=== PATIENT | male | born 1980 | race Caucasian/White ===

== ENCOUNTER 2018-11-11 22:45 | Inpatient (IN) | payer OTHER ==
[2018-11-11 23:49] LABS: ADD MAN DIFF? NO
[2018-11-11 23:52] LABS: BASOPHIL # 0.1 10^3/ul (0.0-0.1); BASOPHILS % 0.5 % (0.0-2.0); EOSINOPHILS # 0.1 10^3/ul (0.0-0.5); EOSINOPHILS % 0.7 % (0.0-7.0); HEMATOCRIT 29.1 % (42.0-52.0); HEMOGLOBIN 9.8 g/dl (14.0-18.0); LYMPHOCYTES # 1.2 10^3/ul (0.8-2.9); LYMPHOCYTES % 11.9 % (15.0-51.0); MEAN CORPUSCULAR HGB CONC 33.7 g/dl (32.0-37.0); MEAN PLATELET VOLUME 8.3 fl (7.4-10.4); MONOCYTE # 0.7 10^3/ul (0.3-0.9); MONOCYTES % 6.7 % (0.0-11.0); NEUTROPHIL # 8.1 10^3/ul (1.6-7.5); NEUTROPHILS % 78.7 % (39.0-77.0); PLATELET COUNT 504 10^3/UL (140-415); RED BLOOD COUNT 3.27 10^6/ul (4.70-6.10); RED CELL DISTRIBUTION WIDTH 16.5 % (11.5-14.5)
[2018-11-11 23:52] LABS: WHITE BLOOD COUNT 10.3 10^3/ul (4.8-10.8)
[2018-11-12 00:19] LABS: ANION GAP 4 (5-13); BLOOD UREA NITROGEN 13 mg/dl (7-20); CALCIUM 8.1 mg/dl (8.4-10.2); CARBON DIOXIDE 31 mmol/L (21-31); CHLORIDE 94 mmol/L (97-110); CREATININE 0.63 mg/dl (0.61-1.24); Estimated GFR > 60 mL/min (>60); GLUCOSE 105 mg/dl (70-220); POTASSIUM 4.1 mmol/L (3.5-5.1); SODIUM 129 mmol/L (135-144)
[2018-11-12] MEDS: oxyCODONE (CR) 20 MG TAB [oxyCONTIN] PO ×3 (00:19→20:56)
[2018-11-12] MEDS: ENOXAPARIN 80 MG/0.8 ML SYG SC ×3 (00:20→20:46)
[2018-11-12] MEDS ORDERED: VANCOMYCIN IV PER PHARMACY XX (01:30)
[2018-11-12] MEDS: HYDROmorphONE 0.5 MG/0.5 ML SYG IV ×4 (01:36→18:35)
[2018-11-12] MEDS: SOD CHLORIDE 0.9% 250 ML IV (01:37)
[2018-11-12] MEDS ORDERED: VANCOMYCIN 1.5 GM/NS 250 ML 250 ML IVPB (04:00)
[2018-11-12] MEDS: VANCOMYCIN 1.5 GM/NS 250 ML 250 ML IVPB (04:29)
[2018-11-12 08:26] LABS: ADD MAN DIFF? NO
[2018-11-12] MEDS: SERTRALINE 50 MG TAB PO (08:30)
[2018-11-12] MEDS: TRIMETHOPRIM/SULFAMETHOX (DS) TAB PO (08:31)
[2018-11-12] MEDS: GABAPENTIN 100 MG CAP PO ×3 (08:31→20:45)
[2018-11-12] MEDS: EMTRICITABINE/TENOFOVIR TAB PO (08:31)
[2018-11-12] MEDS: AZITHROMYCIN 250 MG TAB PO (08:31)
[2018-11-12 08:33] LABS: BASOPHILS % 0.3 % (0.0-2.0); EOSINOPHILS # 0.1 10^3/ul (0.0-0.5); EOSINOPHILS % 0.4 % (0.0-7.0); HEMATOCRIT 31.1 % (42.0-52.0); HEMOGLOBIN 10.2 g/dl (14.0-18.0); LYMPHOCYTES # 0.8 10^3/ul (0.8-2.9); LYMPHOCYTES % 7.3 % (15.0-51.0); MEAN CORPUSCULAR HEMOGLOBIN 29.1 pg (29.0-33.0); MEAN CORPUSCULAR HGB CONC 32.8 g/dl (32.0-37.0); MEAN CORPUSCULAR VOLUME 88.6 fl (82.0-101.0); MEAN PLATELET VOLUME 8.6 fl (7.4-10.4); MONOCYTE # 0.7 10^3/ul (0.3-0.9); NEUTROPHIL # 9.8 10^3/ul (1.6-7.5); NEUTROPHILS % 84.6 % (39.0-77.0); PLATELET COUNT 527 10^3/UL (140-415); RED BLOOD COUNT 3.51 10^6/ul (4.70-6.10); RED CELL DISTRIBUTION WIDTH 16.6 % (11.5-14.5)
[2018-11-12 08:33] LABS: WHITE BLOOD COUNT 11.5 10^3/ul (4.8-10.8)
[2018-11-12] MEDS: SODIUM CHLORIDE 1 GM TAB PO ×3 (08:34→20:45)
[2018-11-12] MEDS: ACYCLOVIR 400 MG TAB PO (08:34)
[2018-11-12] MEDS: FLUCONAZOLE 200 MG TAB PO (08:34)
[2018-11-12 08:46] LABS: ANION GAP 6 (5-13); BLOOD UREA NITROGEN 10 mg/dl (7-20); CARBON DIOXIDE 28 mmol/L (21-31); CHLORIDE 96 mmol/L (97-110); CREATININE 0.55 mg/dl (0.61-1.24); Estimated GFR > 60 mL/min (>60); GLUCOSE 107 mg/dl (70-220); POTASSIUM 3.9 mmol/L (3.5-5.1); SODIUM 130 mmol/L (135-144)
[2018-11-12] MEDS ORDERED: RIFAMPIN PO (09:00)
[2018-11-12] MEDS ORDERED: oxyCODONE (CR) 20 MG TAB [oxyCONTIN] PO (09:00)
[2018-11-12] MEDS ORDERED: RIFAMPIN 300 MG CAP PO (09:00)
[2018-11-12] MEDS ORDERED: PATIENT'S OWN MEDICATION PO (10:00)
[2018-11-12] MEDS ORDERED: ALBUTEROL 0.083% (NEB) 2.5 MG/3 ML AMP HHN (10:00)
[2018-11-12] MEDS: VANCOMYCIN 1.25 GM/NS 250 ML 250 ML IVPB ×2 (12:08→20:45)
[2018-11-12] MEDS: ALBUTEROL/IPRATROPIUM (NEB) 3 ML AMP HHN ×3 (13:39→20:06)
[2018-11-12] MEDS: BISACODYL (EC) 5 MG TAB PO (14:51)
[2018-11-12] MEDS: DOCUSATE SODIUM 100 MG CAP PO (20:49)
[2018-11-13] MEDS: HYDROmorphONE 0.5 MG/0.5 ML SYG IV ×6 (01:37→23:34)
[2018-11-13] MEDS: VANCOMYCIN 1.25 GM/NS 250 ML 250 ML IVPB ×3 (04:17→20:24)
[2018-11-13 05:41] LABS: WHITE BLOOD COUNT 10.4 10^3/ul (4.8-10.8)
[2018-11-13 05:41] LABS: ADD MAN DIFF? NO; BASOPHIL # 0.1 10^3/ul (0.0-0.1); BASOPHILS % 0.6 % (0.0-2.0); EOSINOPHILS # 0.2 10^3/ul (0.0-0.5); EOSINOPHILS % 1.4 % (0.0-7.0); HEMATOCRIT 29.5 % (42.0-52.0); HEMOGLOBIN 9.8 g/dl (14.0-18.0); LYMPHOCYTES # 1.4 10^3/ul (0.8-2.9); LYMPHOCYTES % 13.3 % (15.0-51.0); MEAN CORPUSCULAR HEMOGLOBIN 29.6 pg (29.0-33.0); MEAN CORPUSCULAR HGB CONC 33.2 g/dl (32.0-37.0); MEAN CORPUSCULAR VOLUME 89.1 fl (82.0-101.0); MEAN PLATELET VOLUME 8.5 fl (7.4-10.4); MONOCYTE # 0.6 10^3/ul (0.3-0.9); MONOCYTES % 5.8 % (0.0-11.0); NEUTROPHIL # 8.1 10^3/ul (1.6-7.5); NEUTROPHILS % 77.3 % (39.0-77.0); PLATELET COUNT 578 10^3/UL (140-415); RED BLOOD COUNT 3.31 10^6/ul (4.70-6.10); RED CELL DISTRIBUTION WIDTH 16.1 % (11.5-14.5)
[2018-11-13 06:01] LABS: ALBUMIN 2.7 g/dl (3.3-4.9); ANION GAP 4 (5-13); BLOOD UREA NITROGEN 8 mg/dl (7-20); CALCIUM 8.2 mg/dl (8.4-10.2); CARBON DIOXIDE 29 mmol/L (21-31); CHLORIDE 97 mmol/L (97-110); CREATININE 0.67 mg/dl (0.61-1.24); GLUCOSE 101 mg/dl (70-220); MAGNESIUM 1.9 mg/dl (1.7-2.5); PHOSPHORUS 3.9 mg/dl (2.5-4.9); SODIUM 130 mmol/L (135-144)
[2018-11-13] MEDS: ALBUTEROL/IPRATROPIUM (NEB) 3 ML AMP HHN (09:00)
[2018-11-13] MEDS: GABAPENTIN 100 MG CAP PO ×3 (09:14→20:25)
[2018-11-13] MEDS: DULOXETINE 30 MG CAP DR PO (09:14)
[2018-11-13] MEDS: AZITHROMYCIN 250 MG TAB PO (09:14)
[2018-11-13] MEDS: oxyCODONE (CR) 20 MG TAB [oxyCONTIN] PO ×2 (09:15→20:25)
[2018-11-13] MEDS: SODIUM CHLORIDE 1 GM TAB PO ×3 (09:15→20:25)
[2018-11-13] MEDS: SERTRALINE 50 MG TAB PO (09:15)
[2018-11-13] MEDS: ENOXAPARIN 80 MG/0.8 ML SYG SC ×2 (09:16→20:35)
[2018-11-13] MEDS: IPRATROPIUM (NEB) 0.5 MG/2.5 ML AMP HHN ×3 (10:00→20:01)
[2018-11-13] MEDS: BIKTARVY PO (10:19)
[2018-11-13] MEDS: BISACODYL (EC) 5 MG TAB PO (10:20)
[2018-11-13 11:40] LABS: VANCOMYCIN,TROUGH 14.5 ug/ml (10.0-20.0)
[2018-11-13] MEDS ORDERED: BIKTARVY PO (18:00)
[2018-11-13] MEDS: MELATONIN 3 MG TABLET PO (20:25)
[2018-11-14] MEDS: IPRATROPIUM (NEB) 0.5 MG/2.5 ML AMP HHN ×4 (01:24→19:35)
[2018-11-14] MEDS: HYDROmorphONE 0.5 MG/0.5 ML SYG IV ×5 (04:06→21:09)
[2018-11-14] MEDS: VANCOMYCIN 1.25 GM/NS 250 ML 250 ML IVPB ×3 (04:06→20:13)
[2018-11-14] MEDS: BIKTARVY PO (08:10)
[2018-11-14] MEDS: DULOXETINE 30 MG CAP DR PO (08:10)
[2018-11-14] MEDS: SODIUM CHLORIDE 1 GM TAB PO ×3 (08:10→20:12)
[2018-11-14] MEDS: GABAPENTIN 100 MG CAP PO ×3 (08:10→20:12)
[2018-11-14] MEDS: SERTRALINE 50 MG TAB PO (08:10)
[2018-11-14] MEDS: ENOXAPARIN 80 MG/0.8 ML SYG SC ×2 (08:10→20:12)
[2018-11-14] MEDS: BISACODYL (EC) 5 MG TAB PO ×2 (09:16→14:56)
[2018-11-14] MEDS: oxyCODONE (CR) 20 MG TAB [oxyCONTIN] PO ×2 (09:16→20:13)
[2018-11-14 09:51] LABS: ADD MAN DIFF? NO
[2018-11-14 09:53] LABS: BASOPHILS % 0.4 % (0.0-2.0); EOSINOPHILS # 0.1 10^3/ul (0.0-0.5); EOSINOPHILS % 1.2 % (0.0-7.0); HEMATOCRIT 30.9 % (42.0-52.0); HEMOGLOBIN 10.1 g/dl (14.0-18.0); LYMPHOCYTES # 1.4 10^3/ul (0.8-2.9); LYMPHOCYTES % 13.3 % (15.0-51.0); MEAN CORPUSCULAR HEMOGLOBIN 29.4 pg (29.0-33.0); MEAN CORPUSCULAR HGB CONC 32.7 g/dl (32.0-37.0); MEAN CORPUSCULAR VOLUME 89.8 fl (82.0-101.0); MEAN PLATELET VOLUME 8.4 fl (7.4-10.4); MONOCYTE # 0.6 10^3/ul (0.3-0.9); MONOCYTES % 5.3 % (0.0-11.0); NEUTROPHIL # 8.4 10^3/ul (1.6-7.5); NEUTROPHILS % 78.6 % (39.0-77.0); PLATELET COUNT 522 10^3/UL (140-415); RED BLOOD COUNT 3.44 10^6/ul (4.70-6.10); RED CELL DISTRIBUTION WIDTH 16.1 % (11.5-14.5)
[2018-11-14 09:53] LABS: WHITE BLOOD COUNT 10.7 10^3/ul (4.8-10.8)
[2018-11-14 10:11] LABS: ALBUMIN 2.9 g/dl (3.3-4.9); ANION GAP 5 (5-13); BLOOD UREA NITROGEN 8 mg/dl (7-20); CALCIUM 8.3 mg/dl (8.4-10.2); CARBON DIOXIDE 28 mmol/L (21-31); CHLORIDE 98 mmol/L (97-110); CREATININE 0.63 mg/dl (0.61-1.24); GLUCOSE 145 mg/dl (70-220); MAGNESIUM 1.9 mg/dl (1.7-2.5); PHOSPHORUS 3.1 mg/dl (2.5-4.9); SODIUM 131 mmol/L (135-144)
[2018-11-14 10:20] LABS: POTASSIUM 3.8 mmol/L (3.5-5.1)
[2018-11-14 13:57] LABS: LYMPHOCYTE - % CD4 (HELPER) 30 % (30-61); LYMPHOCYTE - %CD8 (SUPPRESSOR) 51 % (12-42); LYMPHOCYTE - ABSOLUTE 933 cells/uL (850-3900); LYMPHOCYTE - ABSOLUTE CD4 276 cells/uL (490-1740); LYMPHOCYTE - ABSOLUTE CD8 479 cells/uL (180-1170); LYMPHOCYTE - CD4/CD8 RATIO 0.58 (0.86-5.00)
[2018-11-14] MEDS ORDERED: DOCUSATE SODIUM 100 MG CAP PO (15:00)
[2018-11-14] MEDS: traZODone 50 MG TAB PO (20:13)
[2018-11-15] MEDS: IPRATROPIUM (NEB) 0.5 MG/2.5 ML AMP HHN ×4 (01:02→19:14)
[2018-11-15] MEDS: HYDROmorphONE 0.5 MG/0.5 ML SYG IV ×6 (01:12→22:18)
[2018-11-15] MEDS: DOCUSATE SODIUM 100 MG CAP PO ×3 (01:17→20:34)
[2018-11-15] MEDS: VANCOMYCIN 1.25 GM/NS 250 ML 250 ML IVPB ×3 (05:19→20:36)
[2018-11-15 06:00] LABS: ADD MAN DIFF? NO
[2018-11-15 06:06] LABS: BASOPHIL # 0.1 10^3/ul (0.0-0.1); BASOPHILS % 0.5 % (0.0-2.0); EOSINOPHILS # 0.2 10^3/ul (0.0-0.5); EOSINOPHILS % 2.4 % (0.0-7.0); HEMATOCRIT 24.5 % (42.0-52.0); LYMPHOCYTES # 1.7 10^3/ul (0.8-2.9); LYMPHOCYTES % 18.4 % (15.0-51.0); MEAN CORPUSCULAR HEMOGLOBIN 29.5 pg (29.0-33.0); MEAN CORPUSCULAR HGB CONC 32.7 g/dl (32.0-37.0); MEAN CORPUSCULAR VOLUME 90.4 fl (82.0-101.0); MEAN PLATELET VOLUME 8.5 fl (7.4-10.4); MONOCYTE # 0.6 10^3/ul (0.3-0.9); MONOCYTES % 6.2 % (0.0-11.0); NEUTROPHIL # 6.7 10^3/ul (1.6-7.5); NEUTROPHILS % 71.4 % (39.0-77.0); PLATELET COUNT 607 10^3/UL (140-415); RED BLOOD COUNT 2.71 10^6/ul (4.70-6.10); RED CELL DISTRIBUTION WIDTH 15.9 % (11.5-14.5)
[2018-11-15 06:06] LABS: WHITE BLOOD COUNT 9.4 10^3/ul (4.8-10.8)
[2018-11-15 06:54] LABS: ALBUMIN 2.6 g/dl (3.3-4.9); ANION GAP 5 (5-13); BLOOD UREA NITROGEN 8 mg/dl (7-20); CALCIUM 8.4 mg/dl (8.4-10.2); CARBON DIOXIDE 31 mmol/L (21-31); CHLORIDE 99 mmol/L (97-110); CREATININE 0.56 mg/dl (0.61-1.24); GLUCOSE 103 mg/dl (70-220); MAGNESIUM 1.9 mg/dl (1.7-2.5); PHOSPHORUS 4.1 mg/dl (2.5-4.9); POTASSIUM 4.1 mmol/L (3.5-5.1); SODIUM 135 mmol/L (135-144)
[2018-11-15] MEDS: BIKTARVY PO (08:25)
[2018-11-15] MEDS: DULOXETINE 30 MG CAP DR PO (08:26)
[2018-11-15] MEDS: GABAPENTIN 100 MG CAP PO ×3 (08:26→20:34)
[2018-11-15] MEDS: HYDROCODONE/APAP (5/325) TAB PO ×2 (08:26→21:26)
[2018-11-15] MEDS: SODIUM CHLORIDE 1 GM TAB PO ×3 (08:26→20:34)
[2018-11-15] MEDS: SERTRALINE 50 MG TAB PO (08:26)
[2018-11-15] MEDS: ENOXAPARIN 80 MG/0.8 ML SYG SC ×2 (08:28→20:35)
[2018-11-15] MEDS: oxyCODONE (CR) 20 MG TAB [oxyCONTIN] PO ×2 (08:28→20:34)
[2018-11-15] MEDS: BISACODYL (EC) 5 MG TAB PO (08:32)
[2018-11-15] MEDS: traZODone 50 MG TAB PO (20:36)
[2018-11-16] MEDS: IPRATROPIUM (NEB) 0.5 MG/2.5 ML AMP HHN ×4 (01:43→20:35)
[2018-11-16] MEDS: HYDROmorphONE 0.5 MG/0.5 ML SYG IV ×5 (04:38→20:41)
[2018-11-16] MEDS: VANCOMYCIN 1.25 GM/NS 250 ML 250 ML IVPB ×3 (04:39→20:40)
[2018-11-16 05:21] LABS: ADD MAN DIFF? NO
[2018-11-16 05:24] LABS: WHITE BLOOD COUNT 8.4 10^3/ul (4.8-10.8)
[2018-11-16 05:24] LABS: BASOPHIL # 0.1 10^3/ul (0.0-0.1); BASOPHILS % 0.7 % (0.0-2.0); EOSINOPHILS # 0.2 10^3/ul (0.0-0.5); HEMATOCRIT 34.2 % (42.0-52.0); HEMOGLOBIN 10.9 g/dl (14.0-18.0); LYMPHOCYTES # 1.7 10^3/ul (0.8-2.9); LYMPHOCYTES % 19.8 % (15.0-51.0); MEAN CORPUSCULAR HEMOGLOBIN 29.1 pg (29.0-33.0); MEAN CORPUSCULAR HGB CONC 31.9 g/dl (32.0-37.0); MEAN CORPUSCULAR VOLUME 91.2 fl (82.0-101.0); MEAN PLATELET VOLUME 9.4 fl (7.4-10.4); MONOCYTE # 0.5 10^3/ul (0.3-0.9); MONOCYTES % 5.9 % (0.0-11.0); NEUTROPHIL # 5.9 10^3/ul (1.6-7.5); NEUTROPHILS % 70.3 % (39.0-77.0); PLATELET COUNT 509 10^3/UL (140-415); RED BLOOD COUNT 3.75 10^6/ul (4.70-6.10); RED CELL DISTRIBUTION WIDTH 15.9 % (11.5-14.5)
[2018-11-16 05:59] LABS: ALANINE AMINOTRANSFERASE 11 IU/L (13-69); ALKALINE PHOSPHATASE 79 IU/L (42-121); ANION GAP 6 (5-13); ASPARTATE AMINO TRANSFERASE 21 IU/L (15-46); BILIRUBIN,INDIRECT 0.2 mg/dl (0-1.1); BILIRUBIN,TOTAL 0.2 mg/dl (0.2-1.3); BLOOD UREA NITROGEN 9 mg/dl (7-20); CALCIUM 8.9 mg/dl (8.4-10.2); CARBON DIOXIDE 31 mmol/L (21-31); CHLORIDE 101 mmol/L (97-110); CREATININE 0.61 mg/dl (0.61-1.24); Estimated GFR > 60 mL/min (>60); GLUCOSE 94 mg/dl (70-220); SODIUM 138 mmol/L (135-144)
[2018-11-16] MEDS: HYDROCODONE/APAP (5/325) TAB PO ×3 (06:13→22:46)
[2018-11-16] MEDS: DULOXETINE 30 MG CAP DR PO (08:39)
[2018-11-16] MEDS: BIKTARVY PO (08:39)
[2018-11-16] MEDS: SODIUM CHLORIDE 1 GM TAB PO ×3 (08:39→20:54)
[2018-11-16] MEDS: SERTRALINE 50 MG TAB PO (08:39)
[2018-11-16] MEDS: GABAPENTIN 100 MG CAP PO ×3 (08:40→20:54)
[2018-11-16] MEDS: oxyCODONE (CR) 20 MG TAB [oxyCONTIN] PO ×2 (08:40→21:20)
[2018-11-16] MEDS: ENOXAPARIN 80 MG/0.8 ML SYG SC ×2 (08:42→20:42)
[2018-11-16 20:03] LABS: VANCOMYCIN,TROUGH 16.1 ug/ml (10.0-20.0)
[2018-11-16] MEDS: traZODone 50 MG TAB PO (20:54)
[2018-11-17] MEDS: IPRATROPIUM (NEB) 0.5 MG/2.5 ML AMP HHN ×4 (01:22→20:00)
[2018-11-17] MEDS: HYDROmorphONE 0.5 MG/0.5 ML SYG IV ×5 (04:17→20:37)
[2018-11-17] MEDS: VANCOMYCIN 1.25 GM/NS 250 ML 250 ML IVPB ×3 (04:17→20:34)
[2018-11-17] MEDS: ALTEPLASE (CATHFLO) 2 MG INJ CATHETER (04:28)
[2018-11-17] MEDS: HYDROCODONE/APAP (5/325) TAB PO ×2 (05:05→15:01)
[2018-11-17 05:34] LABS: ADD MAN DIFF? NO
[2018-11-17 05:58] LABS: BASOPHIL # 0.1 10^3/ul (0.0-0.1); BASOPHILS % 0.8 % (0.0-2.0); EOSINOPHILS # 0.2 10^3/ul (0.0-0.5); EOSINOPHILS % 3.1 % (0.0-7.0); HEMATOCRIT 30.3 % (42.0-52.0); HEMOGLOBIN 9.8 g/dl (14.0-18.0); LYMPHOCYTES # 1.5 10^3/ul (0.8-2.9); LYMPHOCYTES % 20.6 % (15.0-51.0); MEAN CORPUSCULAR HEMOGLOBIN 28.9 pg (29.0-33.0); MEAN CORPUSCULAR HGB CONC 32.3 g/dl (32.0-37.0); MEAN CORPUSCULAR VOLUME 89.4 fl (82.0-101.0); MONOCYTE # 0.5 10^3/ul (0.3-0.9); MONOCYTES % 7.3 % (0.0-11.0); NEUTROPHIL # 4.9 10^3/ul (1.6-7.5); NEUTROPHILS % 66.6 % (39.0-77.0); PLATELET COUNT 474 10^3/UL (140-415); RED BLOOD COUNT 3.39 10^6/ul (4.70-6.10)
[2018-11-17 05:58] LABS: WHITE BLOOD COUNT 7.4 10^3/ul (4.8-10.8)
[2018-11-17 06:16] LABS: ALANINE AMINOTRANSFERASE 16 IU/L (13-69); ALBUMIN 2.6 g/dl (3.3-4.9); ALBUMIN/GLOBULIN RATIO 0.59; ALKALINE PHOSPHATASE 61 IU/L (42-121); ANION GAP 5 (5-13); ASPARTATE AMINO TRANSFERASE 27 IU/L (15-46); BILIRUBIN,INDIRECT 0.3 mg/dl (0-1.1); BILIRUBIN,TOTAL 0.3 mg/dl (0.2-1.3); BLOOD UREA NITROGEN 7 mg/dl (7-20); CALCIUM 8.4 mg/dl (8.4-10.2); CARBON DIOXIDE 29 mmol/L (21-31); CHLORIDE 102 mmol/L (97-110); CREATININE 0.55 mg/dl (0.61-1.24); Estimated GFR > 60 mL/min (>60); GLUCOSE 102 mg/dl (70-220); SODIUM 136 mmol/L (135-144)
[2018-11-17] MEDS: DULOXETINE 30 MG CAP DR PO (08:22)
[2018-11-17] MEDS: oxyCODONE (CR) 20 MG TAB [oxyCONTIN] PO ×2 (08:22→20:39)
[2018-11-17] MEDS: SODIUM CHLORIDE 1 GM TAB PO ×3 (08:22→20:38)
[2018-11-17] MEDS: SERTRALINE 50 MG TAB PO (08:22)
[2018-11-17] MEDS: GABAPENTIN 100 MG CAP PO ×3 (08:22→20:38)
[2018-11-17] MEDS: BIKTARVY PO (08:23)
[2018-11-17] MEDS: ENOXAPARIN 80 MG/0.8 ML SYG SC ×2 (08:25→20:40)
[2018-11-17] MEDS: LEVALBUTEROL (NEB) 0.63 MG/3 ML AMP HHN (08:45)
[2018-11-17] MEDS: traZODone 50 MG TAB PO (20:39)
[2018-11-18] MEDS: HYDROmorphONE 0.5 MG/0.5 ML SYG IV ×6 (00:44→22:19)
[2018-11-18] MEDS: NACL 0.9% 3 ML SYG IV (00:44)
[2018-11-18] MEDS: LEVALBUTEROL (NEB) 0.63 MG/3 ML AMP HHN (01:37)
[2018-11-18] MEDS: IPRATROPIUM (NEB) 0.5 MG/2.5 ML AMP HHN ×4 (01:37→20:22)
[2018-11-18] MEDS: VANCOMYCIN 1.25 GM/NS 250 ML 250 ML IVPB ×3 (04:38→23:12)
[2018-11-18] MEDS: HYDROCODONE/APAP (5/325) TAB PO ×2 (05:43→12:40)
[2018-11-18 05:58] LABS: ADD MAN DIFF? NO
[2018-11-18 06:16] LABS: WHITE BLOOD COUNT 7.9 10^3/ul (4.8-10.8)
[2018-11-18 06:16] LABS: BASOPHIL # 0.1 10^3/ul (0.0-0.1); BASOPHILS % 0.6 % (0.0-2.0); EOSINOPHILS # 0.4 10^3/ul (0.0-0.5); EOSINOPHILS % 4.4 % (0.0-7.0); HEMATOCRIT 31.1 % (42.0-52.0); LYMPHOCYTES # 1.6 10^3/ul (0.8-2.9); LYMPHOCYTES % 19.7 % (15.0-51.0); MEAN CORPUSCULAR HEMOGLOBIN 28.7 pg (29.0-33.0); MEAN CORPUSCULAR HGB CONC 32.2 g/dl (32.0-37.0); MEAN CORPUSCULAR VOLUME 89.4 fl (82.0-101.0); MEAN PLATELET VOLUME 8.3 fl (7.4-10.4); MONOCYTE # 0.6 10^3/ul (0.3-0.9); MONOCYTES % 7.9 % (0.0-11.0); NEUTROPHIL # 5.1 10^3/ul (1.6-7.5); NEUTROPHILS % 65.2 % (39.0-77.0); PLATELET COUNT 455 10^3/UL (140-415); RED BLOOD COUNT 3.48 10^6/ul (4.70-6.10); RED CELL DISTRIBUTION WIDTH 15.9 % (11.5-14.5)
[2018-11-18 06:43] LABS: ALANINE AMINOTRANSFERASE 20 IU/L (13-69); ALBUMIN 2.6 g/dl (3.3-4.9); ALBUMIN/GLOBULIN RATIO 0.59; ALKALINE PHOSPHATASE 70 IU/L (42-121); ANION GAP 4 (5-13); ASPARTATE AMINO TRANSFERASE 26 IU/L (15-46); BILIRUBIN,INDIRECT 0.2 mg/dl (0-1.1); BILIRUBIN,TOTAL 0.2 mg/dl (0.2-1.3); BLOOD UREA NITROGEN 6 mg/dl (7-20); CALCIUM 8.7 mg/dl (8.4-10.2); CARBON DIOXIDE 31 mmol/L (21-31); CHLORIDE 101 mmol/L (97-110); CREATININE 0.64 mg/dl (0.61-1.24); Estimated GFR > 60 mL/min (>60); GLUCOSE 99 mg/dl (70-220); POTASSIUM 3.9 mmol/L (3.5-5.1); SODIUM 136 mmol/L (135-144)
[2018-11-18] MEDS: GABAPENTIN 100 MG CAP PO ×3 (09:01→20:59)
[2018-11-18] MEDS: DULOXETINE 30 MG CAP DR PO (09:01)
[2018-11-18] MEDS: oxyCODONE (CR) 20 MG TAB [oxyCONTIN] PO ×2 (09:01→20:59)
[2018-11-18] MEDS: BIKTARVY PO (09:01)
[2018-11-18] MEDS: SERTRALINE 50 MG TAB PO (09:01)
[2018-11-18] MEDS: SODIUM CHLORIDE 1 GM TAB PO ×3 (09:02→20:59)
[2018-11-18] MEDS: ENOXAPARIN 80 MG/0.8 ML SYG SC ×2 (09:03→21:27)
[2018-11-18] MEDS: ACETAMINOPHEN 325 MG TAB PO (20:59)
[2018-11-18] MEDS: traZODone 50 MG TAB PO (20:59)
[2018-11-18] MEDS: ALTEPLASE (CATHFLO) 2 MG INJ CATHETER (22:29)
[2018-11-19] MEDS: IPRATROPIUM (NEB) 0.5 MG/2.5 ML AMP HHN ×4 (01:16→19:28)
[2018-11-19] MEDS: HYDROmorphONE 0.5 MG/0.5 ML SYG IV ×5 (02:35→20:15)
[2018-11-19] MEDS: HYDROCODONE/APAP (5/325) TAB PO (03:57)
[2018-11-19] MEDS: ACETAMINOPHEN 325 MG TAB PO (05:53)
[2018-11-19] MEDS: VANCOMYCIN 1.25 GM/NS 250 ML 250 ML IVPB ×3 (07:34→23:57)
[2018-11-19] MEDS: BIKTARVY PO (08:56)
[2018-11-19] MEDS: DULOXETINE 30 MG CAP DR PO (08:57)
[2018-11-19] MEDS: GABAPENTIN 100 MG CAP PO ×3 (08:57→20:15)
[2018-11-19] MEDS: SODIUM CHLORIDE 1 GM TAB PO ×3 (08:57→20:15)
[2018-11-19] MEDS: oxyCODONE (CR) 20 MG TAB [oxyCONTIN] PO ×2 (08:57→21:43)
[2018-11-19] MEDS: SERTRALINE 50 MG TAB PO (08:57)
[2018-11-19] MEDS: ENOXAPARIN 80 MG/0.8 ML SYG SC ×2 (08:58→20:16)
[2018-11-19] MEDS: traZODone 50 MG TAB PO (20:15)
[2018-11-20] MEDS: HYDROmorphONE 0.5 MG/0.5 ML SYG IV ×6 (00:15→20:48)
[2018-11-20] MEDS: IPRATROPIUM (NEB) 0.5 MG/2.5 ML AMP HHN ×4 (01:49→20:03)
[2018-11-20] MEDS: HYDROCODONE/APAP (5/325) TAB PO ×2 (01:56→19:40)
[2018-11-20 05:45] LABS: ADD MAN DIFF? NO
[2018-11-20 05:52] LABS: WHITE BLOOD COUNT 7.1 10^3/ul (4.8-10.8)
[2018-11-20 05:52] LABS: BASOPHIL # 0.1 10^3/ul (0.0-0.1); BASOPHILS % 1.1 % (0.0-2.0); EOSINOPHILS # 0.4 10^3/ul (0.0-0.5); EOSINOPHILS % 6.1 % (0.0-7.0); HEMATOCRIT 32.1 % (42.0-52.0); HEMOGLOBIN 10.1 g/dl (14.0-18.0); LYMPHOCYTES # 2.4 10^3/ul (0.8-2.9); LYMPHOCYTES % 34.4 % (15.0-51.0); MEAN CORPUSCULAR HEMOGLOBIN 28.8 pg (29.0-33.0); MEAN CORPUSCULAR HGB CONC 31.5 g/dl (32.0-37.0); MEAN CORPUSCULAR VOLUME 91.5 fl (82.0-101.0); MEAN PLATELET VOLUME 8.8 fl (7.4-10.4); MONOCYTE # 0.6 10^3/ul (0.3-0.9); MONOCYTES % 9.1 % (0.0-11.0); NEUTROPHIL # 3.3 10^3/ul (1.6-7.5); NEUTROPHILS % 46.2 % (39.0-77.0); PLATELET COUNT 497 10^3/UL (140-415); RED BLOOD COUNT 3.51 10^6/ul (4.70-6.10)
[2018-11-20 06:06] LABS: ANION GAP 4 (5-13); BLOOD UREA NITROGEN 12 mg/dl (7-20); CALCIUM 9.1 mg/dl (8.4-10.2); CARBON DIOXIDE 30 mmol/L (21-31); CHLORIDE 103 mmol/L (97-110); CREATININE 0.69 mg/dl (0.61-1.24); Estimated GFR > 60 mL/min (>60); GLUCOSE 90 mg/dl (70-220); MAGNESIUM 1.8 mg/dl (1.7-2.5); PHOSPHORUS 4.4 mg/dl (2.5-4.9); SODIUM 137 mmol/L (135-144)
[2018-11-20] MEDS: VANCOMYCIN 1.25 GM/NS 250 ML 250 ML IVPB ×3 (08:00→23:57)
[2018-11-20] MEDS: oxyCODONE (CR) 20 MG TAB [oxyCONTIN] PO ×2 (08:23→21:24)
[2018-11-20] MEDS: DULOXETINE 30 MG CAP DR PO (08:23)
[2018-11-20] MEDS: SERTRALINE 50 MG TAB PO (08:23)
[2018-11-20] MEDS: SODIUM CHLORIDE 1 GM TAB PO ×3 (08:23→21:57)
[2018-11-20] MEDS: BIKTARVY PO (08:23)
[2018-11-20] MEDS: GABAPENTIN 100 MG CAP PO ×3 (08:23→20:48)
[2018-11-20] MEDS: ENOXAPARIN 80 MG/0.8 ML SYG SC ×2 (08:27→20:58)
[2018-11-20] MEDS: traZODone 50 MG TAB PO (20:48)
[2018-11-21] MEDS: HYDROmorphONE 0.5 MG/0.5 ML SYG IV ×6 (00:39→23:03)
[2018-11-21] MEDS: IPRATROPIUM (NEB) 0.5 MG/2.5 ML AMP HHN ×3 (02:47→15:21)
[2018-11-21] MEDS: BIKTARVY PO (08:30)
[2018-11-21] MEDS: VANCOMYCIN 1.25 GM/NS 250 ML 250 ML IVPB ×3 (08:30→23:48)
[2018-11-21] MEDS: ENOXAPARIN 80 MG/0.8 ML SYG SC ×2 (08:32→21:04)
[2018-11-21] MEDS: GABAPENTIN 100 MG CAP PO ×3 (08:34→21:01)
[2018-11-21] MEDS: SERTRALINE 50 MG TAB PO (08:34)
[2018-11-21] MEDS: oxyCODONE (CR) 20 MG TAB [oxyCONTIN] PO ×2 (08:34→21:01)
[2018-11-21] MEDS: SODIUM CHLORIDE 1 GM TAB PO ×3 (08:35→21:00)
[2018-11-21] MEDS: DULOXETINE 30 MG CAP DR PO (08:35)
[2018-11-21] MEDS: HYDROCODONE/APAP (5/325) TAB PO (12:37)
[2018-11-21] MEDS: traZODone 50 MG TAB PO (21:01)
[2018-11-22] MEDS: HYDROmorphONE 0.5 MG/0.5 ML SYG IV ×5 (03:47→20:06)
[2018-11-22] MEDS: ALTEPLASE (CATHFLO) 2 MG INJ CATHETER (05:46)
[2018-11-22] MEDS: HYDROCODONE/APAP (5/325) TAB PO ×2 (06:20→12:44)
[2018-11-22] MEDS: VANCOMYCIN 1.25 GM/NS 250 ML 250 ML IVPB ×2 (08:01→16:05)
[2018-11-22] MEDS: BIKTARVY PO (08:09)
[2018-11-22] MEDS: DULOXETINE 30 MG CAP DR PO (08:09)
[2018-11-22] MEDS: SERTRALINE 50 MG TAB PO (08:10)
[2018-11-22] MEDS: oxyCODONE (CR) 20 MG TAB [oxyCONTIN] PO ×2 (08:10→21:16)
[2018-11-22] MEDS: GABAPENTIN 100 MG CAP PO ×3 (08:10→20:10)
[2018-11-22] MEDS: ENOXAPARIN 80 MG/0.8 ML SYG SC ×2 (08:12→20:13)
[2018-11-22] MEDS: IPRATROPIUM (NEB) 0.5 MG/2.5 ML AMP HHN (11:16)
[2018-11-22] MEDS: LEVALBUTEROL (NEB) 0.63 MG/3 ML AMP HHN (11:16)
[2018-11-22] MEDS: SODIUM CHLORIDE 1 GM TAB PO ×3 (12:38→20:10)
[2018-11-22] MEDS: traZODone 50 MG TAB PO (20:10)
[2018-11-23] MEDS: VANCOMYCIN 1.25 GM/NS 250 ML 250 ML IVPB ×3 (00:05→16:14)
[2018-11-23] MEDS: HYDROmorphONE 0.5 MG/0.5 ML SYG IV ×5 (03:19→20:36)
[2018-11-23] MEDS: HYDROCODONE/APAP (5/325) TAB PO ×3 (05:10→19:38)
[2018-11-23 06:02] LABS: BLOOD UREA NITROGEN 8 mg/dl (7-20)
[2018-11-23 06:02] LABS: CREATININE 0.68 mg/dl (0.61-1.24)
[2018-11-23] MEDS: BIKTARVY PO (08:24)
[2018-11-23] MEDS: ENOXAPARIN 80 MG/0.8 ML SYG SC ×2 (08:25→20:42)
[2018-11-23] MEDS: SERTRALINE 50 MG TAB PO (08:26)
[2018-11-23] MEDS: GABAPENTIN 100 MG CAP PO ×3 (08:26→20:38)
[2018-11-23] MEDS: oxyCODONE (CR) 20 MG TAB [oxyCONTIN] PO ×2 (08:26→21:57)
[2018-11-23] MEDS: DULOXETINE 30 MG CAP DR PO (08:26)
[2018-11-23] MEDS: SODIUM CHLORIDE 1 GM TAB PO ×3 (08:26→20:38)
[2018-11-23] MEDS: BISACODYL (EC) 5 MG TAB PO ×2 (13:39→20:51)
[2018-11-23] MEDS: DOCUSATE SODIUM 100 MG CAP PO ×2 (13:39→20:51)
[2018-11-23] MEDS: traZODone 50 MG TAB PO (20:38)
[2018-11-23] MEDS: ALTEPLASE (CATHFLO) 2 MG INJ CATHETER (20:43)
[2018-11-24] MEDS: VANCOMYCIN 1.25 GM/NS 250 ML 250 ML IVPB ×2 (00:37→08:00)
[2018-11-24] MEDS: HYDROmorphONE 0.5 MG/0.5 ML SYG IV ×4 (00:38→12:45)
[2018-11-24] MEDS: HYDROCODONE/APAP (5/325) TAB PO ×3 (02:54→16:25)
[2018-11-24] MEDS: DULOXETINE 30 MG CAP DR PO (08:48)
[2018-11-24] MEDS: SODIUM CHLORIDE 1 GM TAB PO ×3 (08:48→20:26)
[2018-11-24] MEDS: ENOXAPARIN 80 MG/0.8 ML SYG SC ×2 (08:48→20:27)
[2018-11-24] MEDS: GABAPENTIN 100 MG CAP PO ×3 (08:49→21:31)
[2018-11-24] MEDS: oxyCODONE (CR) 20 MG TAB [oxyCONTIN] PO ×2 (08:49→20:25)
[2018-11-24] MEDS: BIKTARVY PO (08:49)
[2018-11-24] MEDS: SERTRALINE 50 MG TAB PO (08:49)
[2018-11-24] MEDS: HYDROmorphONE 2 MG TAB PO ×3 (15:18→21:31)
[2018-11-24 16:11] LABS: VANCOMYCIN,TROUGH 20.3 ug/ml (10.0-20.0)
[2018-11-24] MEDS: VANCOMYCIN 1 GM 250 ML IVPB (17:44)
[2018-11-24] MEDS: traZODone 50 MG TAB PO (20:26)
[2018-11-25] MEDS: HYDROmorphONE 2 MG TAB PO ×7 (01:06→21:27)
[2018-11-25] MEDS: IPRATROPIUM (NEB) 0.5 MG/2.5 ML AMP HHN (01:13)
[2018-11-25] MEDS: LEVALBUTEROL (NEB) 0.63 MG/3 ML AMP HHN (01:13)
[2018-11-25] MEDS: VANCOMYCIN 1 GM 250 ML IVPB ×3 (01:32→17:52)
[2018-11-25] MEDS: HYDROCODONE/APAP (5/325) TAB PO ×3 (02:59→16:51)
[2018-11-25] MEDS: SERTRALINE 50 MG TAB PO (08:37)
[2018-11-25] MEDS: DULOXETINE 30 MG CAP DR PO (08:37)
[2018-11-25] MEDS: BIKTARVY PO (08:37)
[2018-11-25] MEDS: SODIUM CHLORIDE 1 GM TAB PO ×3 (08:37→20:35)
[2018-11-25] MEDS: oxyCODONE (CR) 20 MG TAB [oxyCONTIN] PO ×2 (08:37→20:35)
[2018-11-25] MEDS: GABAPENTIN 100 MG CAP PO ×3 (08:37→20:35)
[2018-11-25] MEDS: ENOXAPARIN 80 MG/0.8 ML SYG SC ×2 (08:39→20:34)
[2018-11-25 17:36] LABS: VANCOMYCIN,TROUGH 14.1 ug/ml (10.0-20.0)
[2018-11-25] MEDS: traZODone 50 MG TAB PO (20:35)
[2018-11-26] MEDS: HYDROmorphONE 2 MG TAB PO ×6 (00:31→20:34)
[2018-11-26] MEDS: VANCOMYCIN 1 GM 250 ML IVPB ×3 (01:31→18:23)
[2018-11-26] MEDS: oxyCODONE (CR) 20 MG TAB [oxyCONTIN] PO (08:54)
[2018-11-26] MEDS: SODIUM CHLORIDE 1 GM TAB PO ×3 (08:54→20:34)
[2018-11-26] MEDS: GABAPENTIN 100 MG CAP PO ×3 (08:55→20:34)
[2018-11-26] MEDS: DULOXETINE 30 MG CAP DR PO (08:55)
[2018-11-26] MEDS: SERTRALINE 50 MG TAB PO (08:55)
[2018-11-26] MEDS: ENOXAPARIN 80 MG/0.8 ML SYG SC ×2 (08:57→20:38)
[2018-11-26] MEDS: BIKTARVY PO (09:36)
[2018-11-26] MEDS: oxyCODONE (CR) 10 MG TAB [oxyCONTIN] PO (11:50)
[2018-11-26] MEDS: ONDANSETRON 4 MG INJ IV (12:03)
[2018-11-26] MEDS: HYDROCODONE/APAP (5/325) TAB PO (18:23)
[2018-11-26] MEDS: traZODone 50 MG TAB PO (20:34)
[2018-11-26] MEDS: oxyCODONE (CR) 15 MG TAB [oxyCONTIN] PO (21:24)
[2018-11-27] MEDS: HYDROmorphONE 2 MG TAB PO ×8 (00:12→23:24)
[2018-11-27] MEDS: HYDROCODONE/APAP (5/325) TAB PO ×2 (00:58→19:13)
[2018-11-27] MEDS: VANCOMYCIN 1 GM 250 ML IVPB ×2 (01:29→09:54)
[2018-11-27 06:39] LABS: BLOOD UREA NITROGEN 10 mg/dl (7-20)
[2018-11-27 06:39] LABS: CREATININE 0.76 mg/dl (0.61-1.24)
[2018-11-27] MEDS: oxyCODONE (CR) 15 MG TAB [oxyCONTIN] PO ×2 (08:25→21:13)
[2018-11-27] MEDS: GABAPENTIN 100 MG CAP PO ×3 (08:25→20:02)
[2018-11-27] MEDS: DULOXETINE 30 MG CAP DR PO (08:25)
[2018-11-27] MEDS: BIKTARVY PO (08:25)
[2018-11-27] MEDS: SERTRALINE 50 MG TAB PO (08:25)
[2018-11-27] MEDS: SODIUM CHLORIDE 1 GM TAB PO ×3 (08:26→20:02)
[2018-11-27] MEDS: ENOXAPARIN 80 MG/0.8 ML SYG SC ×2 (08:27→20:04)
[2018-11-27] MEDS: LEVALBUTEROL (NEB) 0.63 MG/3 ML AMP HHN (14:05)
[2018-11-27] MEDS: traZODone 50 MG TAB PO (20:03)
[2018-11-27] MEDS: BISACODYL (EC) 5 MG TAB PO (20:12)
[2018-11-27] MEDS: DOCUSATE SODIUM 100 MG CAP PO (20:12)
[2018-11-27] MEDS: VANCOMYCIN 1.5 GM/NS 250 ML 250 ML IVPB (21:15)
[2018-11-28] MEDS: HYDROmorphONE 2 MG TAB PO ×6 (02:47→22:30)
[2018-11-28] MEDS: HYDROCODONE/APAP (5/325) TAB PO ×3 (07:45→23:24)
[2018-11-28] MEDS: BIKTARVY PO (09:07)
[2018-11-28] MEDS: SODIUM CHLORIDE 1 GM TAB PO ×3 (09:07→20:22)
[2018-11-28] MEDS: DULOXETINE 30 MG CAP DR PO (09:08)
[2018-11-28] MEDS: GABAPENTIN 100 MG CAP PO ×3 (09:08→20:22)
[2018-11-28] MEDS: VANCOMYCIN 1.5 GM/NS 250 ML 250 ML IVPB ×2 (09:08→21:38)
[2018-11-28] MEDS: SERTRALINE 50 MG TAB PO (09:08)
[2018-11-28] MEDS: ENOXAPARIN 80 MG/0.8 ML SYG SC ×2 (09:10→20:23)
[2018-11-28] MEDS: oxyCODONE (CR) 15 MG TAB [oxyCONTIN] PO ×2 (10:04→20:22)
[2018-11-28] MEDS: traZODone 50 MG TAB PO (20:22)
[2018-11-29] MEDS: HYDROmorphONE 2 MG TAB PO ×3 (02:34→11:37)
[2018-11-29] MEDS: BIKTARVY PO (09:22)
[2018-11-29] MEDS: DULOXETINE 30 MG CAP DR PO (09:23)
[2018-11-29] MEDS: GABAPENTIN 100 MG CAP PO ×3 (09:23→20:51)
[2018-11-29] MEDS: SODIUM CHLORIDE 1 GM TAB PO ×3 (09:23→20:50)
[2018-11-29] MEDS: oxyCODONE (CR) 15 MG TAB [oxyCONTIN] PO ×2 (09:23→20:51)
[2018-11-29] MEDS: VANCOMYCIN 1.5 GM/NS 250 ML 250 ML IVPB ×2 (09:24→22:23)
[2018-11-29] MEDS: SERTRALINE 50 MG TAB PO (09:24)
[2018-11-29] MEDS: ENOXAPARIN 80 MG/0.8 ML SYG SC ×2 (09:25→20:53)
[2018-11-29] MEDS ORDERED: HYDROmorphONE 1 MG/ML SYG IV (12:30)
[2018-11-29] MEDS: HYDROCODONE/APAP (5/325) TAB PO (13:03)
[2018-11-29] MEDS: HYDROmorphONE 1 MG/ML SYG IV ×3 (14:01→22:24)
[2018-11-29] MEDS: traZODone 50 MG TAB PO (20:50)
[2018-11-29 21:57] LABS: VANCOMYCIN,TROUGH 14.1 ug/ml (10.0-20.0)
[2018-11-30] MEDS: HYDROmorphONE 1 MG/ML SYG IV ×5 (02:26→21:15)
[2018-11-30] MEDS: HYDROCODONE/APAP (5/325) TAB PO ×2 (03:27→13:14)
[2018-11-30] MEDS: BISACODYL (EC) 5 MG TAB PO (05:24)
[2018-11-30] MEDS: DOCUSATE SODIUM 100 MG CAP PO (05:24)
[2018-11-30] MEDS: BIKTARVY PO (09:10)
[2018-11-30] MEDS: SODIUM CHLORIDE 1 GM TAB PO ×3 (09:11→20:20)
[2018-11-30] MEDS: GABAPENTIN 100 MG CAP PO ×3 (09:11→20:20)
[2018-11-30] MEDS: oxyCODONE (CR) 15 MG TAB [oxyCONTIN] PO ×2 (09:11→20:20)
[2018-11-30] MEDS: SERTRALINE 50 MG TAB PO (09:11)
[2018-11-30] MEDS: DULOXETINE 30 MG CAP DR PO (09:11)
[2018-11-30] MEDS: ENOXAPARIN 80 MG/0.8 ML SYG SC ×2 (09:16→20:22)
[2018-11-30] MEDS: VANCOMYCIN 1.5 GM/NS 250 ML 250 ML IVPB ×2 (09:16→21:15)
[2018-11-30] MEDS: traZODone 50 MG TAB PO (20:20)
[2018-12-01] MEDS: HYDROCODONE/APAP (5/325) TAB PO ×4 (00:36→20:31)
[2018-12-01] MEDS: HYDROmorphONE 1 MG/ML SYG IV ×6 (02:17→23:11)
[2018-12-01] MEDS: ALTEPLASE (CATHFLO) 2 MG INJ CATHETER (03:13)
[2018-12-01 05:22] LABS: ADD MAN DIFF? NO
[2018-12-01 05:30] LABS: BASOPHIL # 0.1 10^3/ul (0.0-0.1); BASOPHILS % 0.9 % (0.0-2.0); EOSINOPHILS # 0.4 10^3/ul (0.0-0.5); EOSINOPHILS % 3.9 % (0.0-7.0); HEMATOCRIT 32.3 % (42.0-52.0); LYMPHOCYTES % 30.8 % (15.0-51.0); MEAN CORPUSCULAR HEMOGLOBIN 27.7 pg (29.0-33.0); MEAN CORPUSCULAR VOLUME 89.5 fl (82.0-101.0); MEAN PLATELET VOLUME 9.6 fl (7.4-10.4); MONOCYTE # 1.2 10^3/ul (0.3-0.9); MONOCYTES % 12.4 % (0.0-11.0); NEUTROPHIL # 4.9 10^3/ul (1.6-7.5); NEUTROPHILS % 50.5 % (39.0-77.0); PLATELET COUNT 533 10^3/UL (140-415); RED BLOOD COUNT 3.61 10^6/ul (4.70-6.10); RED CELL DISTRIBUTION WIDTH 15.4 % (11.5-14.5)
[2018-12-01 05:30] LABS: WHITE BLOOD COUNT 9.7 10^3/ul (4.8-10.8)
[2018-12-01 05:50] LABS: ALBUMIN 2.9 g/dl (3.3-4.9); ANION GAP 6 (5-13); BLOOD UREA NITROGEN 11 mg/dl (7-20); CALCIUM 9.2 mg/dl (8.4-10.2); CARBON DIOXIDE 29 mmol/L (21-31); CHLORIDE 102 mmol/L (97-110); CREATININE 0.73 mg/dl (0.61-1.24); GLUCOSE 97 mg/dl (70-220); MAGNESIUM 1.7 mg/dl (1.7-2.5); PHOSPHORUS 4.7 mg/dl (2.5-4.9); POTASSIUM 4.2 mmol/L (3.5-5.1); SODIUM 137 mmol/L (135-144)
[2018-12-01 05:55] LABS: CREATININE 0.73 mg/dl (0.61-1.24)
[2018-12-01 05:55] LABS: BLOOD UREA NITROGEN 11 mg/dl (7-20)
[2018-12-01] MEDS: SODIUM CHLORIDE 1 GM TAB PO ×3 (08:21→21:35)
[2018-12-01] MEDS: oxyCODONE (CR) 15 MG TAB [oxyCONTIN] PO ×2 (08:21→21:35)
[2018-12-01] MEDS: GABAPENTIN 100 MG CAP PO ×3 (08:21→21:35)
[2018-12-01] MEDS: BIKTARVY PO (08:21)
[2018-12-01] MEDS: DULOXETINE 30 MG CAP DR PO (08:21)
[2018-12-01] MEDS: DOCUSATE SODIUM 100 MG CAP PO (08:21)
[2018-12-01] MEDS: BISACODYL (EC) 5 MG TAB PO (08:21)
[2018-12-01] MEDS: SERTRALINE 50 MG TAB PO (08:21)
[2018-12-01] MEDS: VANCOMYCIN 1.5 GM/NS 250 ML 250 ML IVPB ×2 (10:50→21:36)
[2018-12-01] MEDS: ENOXAPARIN 80 MG/0.8 ML SYG SC ×2 (10:51→21:36)
[2018-12-01] MEDS: traZODone 50 MG TAB PO (21:35)
[2018-12-02] MEDS: HYDROmorphONE 1 MG/ML SYG IV ×5 (04:02→20:24)
[2018-12-02] MEDS: HYDROCODONE/APAP (5/325) TAB PO ×3 (05:54→23:41)
[2018-12-02] MEDS: VANCOMYCIN 1.5 GM/NS 250 ML 250 ML IVPB ×2 (09:35→22:01)
[2018-12-02] MEDS: DULOXETINE 30 MG CAP DR PO (09:35)
[2018-12-02] MEDS: BIKTARVY PO (09:35)
[2018-12-02] MEDS: SODIUM CHLORIDE 1 GM TAB PO ×3 (09:35→22:18)
[2018-12-02] MEDS: GABAPENTIN 100 MG CAP PO ×3 (09:36→20:23)
[2018-12-02] MEDS: oxyCODONE (CR) 15 MG TAB [oxyCONTIN] PO ×2 (09:36→20:23)
[2018-12-02] MEDS: SERTRALINE 50 MG TAB PO (09:36)
[2018-12-02] MEDS: ENOXAPARIN 80 MG/0.8 ML SYG SC ×2 (09:38→20:25)
[2018-12-02] MEDS: NACL 0.9% 3 ML SYG IV (09:41)
[2018-12-02] MEDS: traZODone 50 MG TAB PO (20:23)
[2018-12-03] MEDS: HYDROmorphONE 1 MG/ML SYG IV ×6 (00:46→22:04)
[2018-12-03] MEDS: HYDROCODONE/APAP (5/325) TAB PO ×2 (06:41→16:19)
[2018-12-03] MEDS: SODIUM CHLORIDE 1 GM TAB PO ×3 (09:08→20:23)
[2018-12-03] MEDS: DULOXETINE 30 MG CAP DR PO (09:10)
[2018-12-03] MEDS: GABAPENTIN 100 MG CAP PO ×3 (09:10→20:23)
[2018-12-03] MEDS: SERTRALINE 50 MG TAB PO (09:11)
[2018-12-03] MEDS: BIKTARVY PO (09:12)
[2018-12-03] MEDS: VANCOMYCIN 1.5 GM/NS 250 ML 250 ML IVPB ×2 (09:24→21:21)
[2018-12-03] MEDS: ENOXAPARIN 80 MG/0.8 ML SYG SC ×2 (09:24→20:24)
[2018-12-03] MEDS: oxyCODONE (CR) 15 MG TAB [oxyCONTIN] PO ×2 (11:36→20:22)
[2018-12-03] MEDS: traZODone 50 MG TAB PO (20:23)
[2018-12-04] MEDS: HYDROmorphONE 1 MG/ML SYG IV ×6 (02:17→23:46)
[2018-12-04] MEDS: BIKTARVY PO (08:12)
[2018-12-04] MEDS: GABAPENTIN 100 MG CAP PO ×3 (08:13→20:46)
[2018-12-04] MEDS: SODIUM CHLORIDE 1 GM TAB PO ×3 (08:13→20:46)
[2018-12-04] MEDS: DULOXETINE 30 MG CAP DR PO (08:13)
[2018-12-04] MEDS: SERTRALINE 50 MG TAB PO (08:13)
[2018-12-04] MEDS: oxyCODONE (CR) 15 MG TAB [oxyCONTIN] PO ×2 (08:14→20:46)
[2018-12-04] MEDS: ENOXAPARIN 80 MG/0.8 ML SYG SC ×2 (08:14→20:47)
[2018-12-04 10:36] LABS: VANCOMYCIN,TROUGH 13.8 ug/ml (10.0-20.0)
[2018-12-04] MEDS: VANCOMYCIN 1.5 GM/NS 250 ML 250 ML IVPB ×2 (10:55→22:02)
[2018-12-04] MEDS: HYDROCODONE/APAP (5/325) TAB PO ×2 (12:18→22:05)
[2018-12-04 13:41] LABS: LYMPHOCYTE - % CD4 (HELPER) 25 % (30-61); LYMPHOCYTE - %CD8 (SUPPRESSOR) 61 % (12-42); LYMPHOCYTE - ABSOLUTE 3234 cells/uL (850-3900); LYMPHOCYTE - ABSOLUTE CD4 821 cells/uL (490-1740); LYMPHOCYTE - ABSOLUTE CD8 1985 cells/uL (180-1170); LYMPHOCYTE - CD4/CD8 RATIO 0.41 (0.86-5.00)
[2018-12-04] MEDS: traZODone 50 MG TAB PO (20:47)
[2018-12-05] MEDS: HYDROCODONE/APAP (5/325) TAB PO ×2 (04:16→12:07)
[2018-12-05] MEDS: HYDROmorphONE 1 MG/ML SYG IV ×5 (05:33→21:49)
[2018-12-05] MEDS: BIKTARVY PO (08:25)
[2018-12-05] MEDS: GABAPENTIN 100 MG CAP PO ×3 (08:25→21:16)
[2018-12-05] MEDS: SODIUM CHLORIDE 1 GM TAB PO ×3 (08:25→21:16)
[2018-12-05] MEDS: DULOXETINE 30 MG CAP DR PO (08:26)
[2018-12-05] MEDS: oxyCODONE (CR) 15 MG TAB [oxyCONTIN] PO ×2 (08:26→21:16)
[2018-12-05] MEDS: SERTRALINE 50 MG TAB PO (08:26)
[2018-12-05] MEDS: ENOXAPARIN 80 MG/0.8 ML SYG SC ×2 (09:39→21:18)
[2018-12-05] MEDS: VANCOMYCIN 1.5 GM/NS 250 ML 250 ML IVPB ×2 (09:41→21:16)
[2018-12-05] MEDS: traZODone 50 MG TAB PO (21:16)
[2018-12-06] MEDS: HYDROCODONE/APAP (5/325) TAB PO ×2 (00:30→08:21)
[2018-12-06] MEDS: HYDROmorphONE 1 MG/ML SYG IV ×3 (02:05→18:55)
[2018-12-06] MEDS: BIKTARVY PO (08:20)
[2018-12-06] MEDS: SERTRALINE 50 MG TAB PO (08:20)
[2018-12-06] MEDS: DULOXETINE 30 MG CAP DR PO (08:20)
[2018-12-06] MEDS: oxyCODONE (CR) 15 MG TAB [oxyCONTIN] PO ×2 (08:21→21:09)
[2018-12-06] MEDS: SODIUM CHLORIDE 1 GM TAB PO ×3 (08:21→20:08)
[2018-12-06] MEDS: GABAPENTIN 100 MG CAP PO ×3 (08:21→20:08)
[2018-12-06] MEDS: ENOXAPARIN 80 MG/0.8 ML SYG SC ×2 (08:23→20:12)
[2018-12-06] MEDS: VANCOMYCIN 1.5 GM/NS 250 ML 250 ML IVPB ×2 (10:33→21:08)
[2018-12-06] MEDS: HYDROmorphONE 2 MG TAB PO ×3 (10:51→20:09)
[2018-12-06] MEDS: ACETAMINOPHEN 325 MG TAB PO (17:28)
[2018-12-06] MEDS: traZODone 50 MG TAB PO (20:09)
[2018-12-07] MEDS: HYDROmorphONE 2 MG TAB PO ×6 (00:06→23:04)
[2018-12-07 06:28] LABS: CREATININE 0.81 mg/dl (0.61-1.24)
[2018-12-07 06:28] LABS: BLOOD UREA NITROGEN 12 mg/dl (7-20)
[2018-12-07] MEDS: HYDROmorphONE 1 MG/ML SYG IV ×2 (07:38→20:10)
[2018-12-07] MEDS: BIKTARVY PO (08:32)
[2018-12-07] MEDS: oxyCODONE (CR) 15 MG TAB [oxyCONTIN] PO ×2 (08:32→20:10)
[2018-12-07] MEDS: SERTRALINE 50 MG TAB PO (08:33)
[2018-12-07] MEDS: SODIUM CHLORIDE 1 GM TAB PO ×3 (08:33→20:10)
[2018-12-07] MEDS: DULOXETINE 30 MG CAP DR PO (08:33)
[2018-12-07] MEDS: GABAPENTIN 100 MG CAP PO ×3 (08:34→20:09)
[2018-12-07] MEDS: ENOXAPARIN 80 MG/0.8 ML SYG SC ×2 (08:37→20:11)
[2018-12-07] MEDS: VANCOMYCIN 1.5 GM/NS 250 ML 250 ML IVPB ×2 (10:58→22:36)
[2018-12-07] MEDS: traZODone 50 MG TAB PO (20:09)
[2018-12-08] MEDS: HYDROmorphONE 2 MG TAB PO ×5 (03:13→21:07)
[2018-12-08 05:37] LABS: ADD MAN DIFF? NO
[2018-12-08 05:49] LABS: BASOPHIL # 0.1 10^3/ul (0.0-0.1); BASOPHILS % 0.8 % (0.0-2.0); EOSINOPHILS # 0.7 10^3/ul (0.0-0.5); EOSINOPHILS % 7.1 % (0.0-7.0); HEMATOCRIT 34.1 % (42.0-52.0); HEMOGLOBIN 10.8 g/dl (14.0-18.0); LYMPHOCYTES # 3.6 10^3/ul (0.8-2.9); LYMPHOCYTES % 36.4 % (15.0-51.0); MEAN CORPUSCULAR HEMOGLOBIN 27.9 pg (29.0-33.0); MEAN CORPUSCULAR HGB CONC 31.7 g/dl (32.0-37.0); MEAN CORPUSCULAR VOLUME 88.1 fl (82.0-101.0); MEAN PLATELET VOLUME 9.1 fl (7.4-10.4); MONOCYTE # 1.1 10^3/ul (0.3-0.9); MONOCYTES % 11.2 % (0.0-11.0); NEUTROPHIL # 4.4 10^3/ul (1.6-7.5); NEUTROPHILS % 43.6 % (39.0-77.0); PLATELET COUNT 462 10^3/UL (140-415); RED BLOOD COUNT 3.87 10^6/ul (4.70-6.10); RED CELL DISTRIBUTION WIDTH 15.3 % (11.5-14.5)
[2018-12-08 06:05] LABS: ANION GAP 7 (5-13); BLOOD UREA NITROGEN 9 mg/dl (7-20); CALCIUM 8.9 mg/dl (8.4-10.2); CARBON DIOXIDE 28 mmol/L (21-31); CHLORIDE 99 mmol/L (97-110); Estimated GFR > 60 mL/min (>60); GLUCOSE 92 mg/dl (70-220); MAGNESIUM 1.6 mg/dl (1.7-2.5); PHOSPHORUS 4.4 mg/dl (2.5-4.9); POTASSIUM 3.9 mmol/L (3.5-5.1); SODIUM 134 mmol/L (135-144)
[2018-12-08] MEDS: ALTEPLASE (CATHFLO) 2 MG INJ CATHETER (06:32)
[2018-12-08] MEDS: ENOXAPARIN 80 MG/0.8 ML SYG SC ×2 (08:48→21:09)
[2018-12-08] MEDS: DULOXETINE 30 MG CAP DR PO (08:50)
[2018-12-08] MEDS: SODIUM CHLORIDE 1 GM TAB PO ×3 (08:50→21:07)
[2018-12-08] MEDS: BIKTARVY PO (08:50)
[2018-12-08] MEDS: SERTRALINE 50 MG TAB PO (08:51)
[2018-12-08] MEDS: GABAPENTIN 100 MG CAP PO ×3 (08:51→21:08)
[2018-12-08] MEDS: VANCOMYCIN 1.5 GM/NS 250 ML 250 ML IVPB ×2 (08:53→21:57)
[2018-12-08] MEDS: HYDROmorphONE 1 MG/ML SYG IV ×2 (09:31→21:56)
[2018-12-08] MEDS: oxyCODONE (CR) 15 MG TAB [oxyCONTIN] PO ×2 (11:14→23:29)
[2018-12-08] MEDS: traZODone 50 MG TAB PO (21:08)
[2018-12-09] MEDS: HYDROmorphONE 2 MG TAB PO ×5 (01:05→17:51)
[2018-12-09] MEDS: MAGNESIUM SULFATE 3 GM in DEXTROSE 5% 100 ML IVPB (01:21)
[2018-12-09] MEDS: DULOXETINE 30 MG CAP DR PO (09:14)
[2018-12-09] MEDS: oxyCODONE (CR) 15 MG TAB [oxyCONTIN] PO (09:14)
[2018-12-09] MEDS: BIKTARVY PO (09:14)
[2018-12-09] MEDS: GABAPENTIN 100 MG CAP PO ×2 (09:15→13:37)
[2018-12-09] MEDS: SODIUM CHLORIDE 1 GM TAB PO ×2 (09:15→13:37)
[2018-12-09] MEDS: SERTRALINE 50 MG TAB PO (09:15)
[2018-12-09] MEDS: ENOXAPARIN 80 MG/0.8 ML SYG SC (09:21)
[2018-12-09 09:25] LABS: VANCOMYCIN,TROUGH 16.2 ug/ml (10.0-20.0)
[2018-12-09] MEDS: VANCOMYCIN 1.5 GM/NS 250 ML 250 ML IVPB (10:45)
[2018-12-09] MEDS: HYDROmorphONE 1 MG/ML SYG IV (10:46)
== END 2018-12-09 19:46 | DRG 559 ==
LOC: MS3 11-18 21:38 → PP2 22:45
PROC: 02HV33Z Insertion of Infusion Device into Superior Vena Cava, Percutaneous Approach (ICD-10-PCS; principal; 2018-11-14)
DX: T84.51XA Infection and inflammatory reaction due to internal right hip prosthesis, initial encounter (principal); J96.01 Acute respiratory failure with hypoxia; J18.9 Pneumonia, unspecified organism; E87.1 Hypo-osmolality and hyponatremia; B20 Human immunodeficiency virus [HIV] disease; I82.412 Acute embolism and thrombosis of left femoral vein; E22.2 Syndrome of inappropriate secretion of antidiuretic hormone; R78.81 Bacteremia; T84.52XA Infection and inflammatory reaction due to internal left hip prosthesis, initial encounter; B99.8 Other infectious disease; B95.62 Methicillin resistant Staphylococcus aureus infection as the cause of diseases classified elsewhere; F43.10 Post-traumatic stress disorder, unspecified; Z72.0 Tobacco use; J84.10 Pulmonary fibrosis, unspecified
CPT/HCPCS: 36573; 71045; 80048; 80053; 80069; 80202; 82565; 83735; 84100; 84520; 85025; 86360; 87040-91; 87081; 87536; 93971; 94640; 94664; 97116; 97162; 97165; 97530